=== PATIENT | female | born 1995 | race African-American/Black ===

== ENCOUNTER 2019-10-04 06:24 | Emergency (ER) | payer OTHER ==
[~2019-10-04] VITALS: Ht 167.6 cm; Wt 109.0 kg
[2019-10-04] MEDS ORDERED: SODIUM CHLORIDE 0.9% 1,000 ML IV ONE (06:43)
[2019-10-04] MEDS ORDERED: MORPHINE SULFATE 4 MG/ML CPJ (NOT FOR IM USE) IV ONE ×2 (07:00→08:45)
[2019-10-04] MEDS ORDERED: ONDANSETRON HCL 4MG/2ML INJ IV ONE ×2 (07:00→08:45)
[2019-10-04 07:17] LABS: BASOPHILS % 0.4 % (0.0-2.0); EOSINOPHILS % 0.7 % (0.0-5.0); HEMATOCRIT. 41.2 % (36.0-48.0); HEMOGLOBIN. 13.7 g/dL (12.0-16.0); LYMPHOCYTES % 15.7 % (20.0-50.0); MEAN CORPUSCULAR HEMOGLOBIN 26.7 pg (28.0-32.0); MEAN CORPUSCULAR VOLUME 80.5 fL (81.0-99.0); MEAN PLATELET VOLUME 9.5 fl (7.4-10.4); MONOCYTES % 5.2 % (2.0-8.0); PLATELET 247 x1000/uL (130-400); RED BLOOD CELL COUNT 5.12 mill/uL (4.2-5.4); RED CELL DISTRIBUTION WIDTH 14.7 % (11.6-14.6)
[2019-10-04 07:24] LABS: CHLORIDE 107 mEq/L (98-107)
[2019-10-04 07:25] LABS: INR 1.1; PROTHROMBIN TIME 11.5 sec (9.6-11.0)
[2019-10-04 07:49] LABS: B-HCG QUANTITATIVE 70208 mIU/mL (<3)
[2019-10-04] MEDS ORDERED: METRONIDAZOLE 500 MG PREMIX 100 ML IV ONE (08:45)
[2019-10-04] MEDS ORDERED: CEFTRIAXONE 1 G PREMIX 50 ML IV ONE (09:00)
[2019-10-04 11:26] VITALS: BP 114/71
== END 2019-10-04 12:06 | disposition short-term general hospital (02) ==
LOC: ER 06:24
DX: O26.891 Other specified pregnancy related conditions, first trimester (principal); O99.611 Diseases of the digestive system complicating pregnancy, first trimester; Z3A.10 10 weeks gestation of pregnancy; R10.9 Unspecified abdominal pain; Z88.0 Allergy status to penicillin
CPT/HCPCS: 36415; 76700; 76801; 76857; 80053; 83605; 83690; 84702; 85025; 85610; 86850; 86900; 86901; 87040; 93005; 96361; 96365; 96367; 96375; 96376; 99285; J0696; J2270; J2405; J3490; J7030